=== PATIENT | male | born 1990 | race Caucasian/White ===

== ENCOUNTER 2020-10-09 10:07 | Emergency (ER) | payer OTHER, SELFPAY ==
[2020-10-09 10:16] VITALS: BP 129/85; PULSE 64; RESP 18; TEMP 35.6; O2SAT 99
--- NOTE | 2020-10-09 10:34 | ED.DENTAL ---
HPI - Dental/Oral General Chief complaint: Dental/Oral Stated complaint: Tooth Pain Time Seen by Provider: 10/09/20 10:30 Source: patient and RN notes reviewed Mode of arrival: ambulatory Limitations: no limitations History of Present Illness HPI Narrative: Patient presents today complaining of right upper and lower dental pain x1.5 weeks. Patient has a dental appointment to have many of his teeth extracted November 25 at [facility]. Currently rates his pain 9/10 and has been using Tylenol, ibuprofen, Orajel, ice, and heat without relief. Denies facial swelling, shortness of breath, or difficulty swallowing. He cannot pinpoint his pain to one tooth. MD Complaint: tooth pain Related Data Home Medications Medication Instructions Recorded Confirmed No Home Medications 10/09/20 10/09/20 Allergies Allergy/AdvReac Type Severity Reaction Status Date / Time No Known Allergies Allergy Verified 10/09/20 10:24 Review of Systems Review of Systems: Narrative: CONSTITUTIONAL: Denies body aches, fever, chills, or sweats. EYES: Denies visual changes, redness, or discharge. ENT: Denies rhinorrhea, congestion, sore throat, or otalgia. +Tooth pain CARDIOVASCULAR: Denies chest pain, palpitations, or edema. RESPIRATORY: Denies cough or dyspnea. GASTROINTESTINAL: Denies abdominal pain, nausea, vomiting, or diarrhea. GENITOURINARY: Denies dysuria or hematuria. SKIN: Denies rash, itching, or wounds. MUSCULOSKELETAL: Denies back pain, joint pain, or myalgia. NEUROLOGIC: Denies headache, numbness, tingling, or weakness. PSYCH: Denies depression or anxiety. PMFSH Comments At time of signature, I have reviewed and agree with nursing past medical, surgical, social and family history unless otherwise noted. Please see nursing chart for further information. There is no relevant family history pertinent to the presenting complaint Exam Narrative: Exam Narrative: GENERAL: Well-appearing, well-nourished, and in no acute distress. HEAD: Normocephalic, atraumatic. EYES: EOMI. No redness or drainage. Conjunctivae normal. ENT: Mucous membranes pink and moist. Throat normal. Uvula midline. Gross dental decay throughout. Patient localizes pain to the right upper and lower lateral teeth. These teeth are broken off at the gumline and dark brown in color. Gumline is not exceptionally edematous. No obvious periapical abscesses noted. No facial swelling noted. NECK: Normal AROM. Supple. No lymphadenopathy. CHEST: No respiratory distress. EXTREMITIES: Normal range of motion. No edema. SKIN: Warm, dry, no rash. Capillary refill normal. Normal skin turgor. NEURO: No focal deficits. Alert and oriented x3. Gait steady. PSYCH: Normal affect. No signs of depression or anxiety. Course Vital Signs Vital signs: Vital Signs Temperature 96.1 F L 10/09/20 10:16 Pulse Rate 64 10/09/20 10:16 Respiratory Rate 18 10/09/20 10:16 Blood Pressure 129/85 10/09/20 10:16 Pulse Oximetry 99 10/09/20 10:16 Temperature 96.1 F L 10/09/20 10:16 Pulse Rate 64 10/09/20 10:16 Respiratory Rate 18 10/09/20 10:16 Blood Pressure 129/85 10/09/20 10:16 Pulse Oximetry 99 10/09/20 10:16 Reviewed. Pt has been instructed to follow up with his PCP regarding his elevated blood pressure today. MDM - Dental/Oral Differential Diagnosis Differential diagnosis: Likely gingival abscess, dental caries, toothache, dental abscess and fracture of tooth Critical Care Time Critical Care Time Critical Care Time: No Discharge Plan Discharge Clinical Impression: Toothache Patient Disposition: Home, Self-Care Condition: Stable Instructions: Antibiotic Form, Toothache (ED) Additional Instructions: Please take the amoxicillin as prescribed until gone. Continue [id number]-[id number] medication for pain as well. Follow-up with your dentist as soon as possible for further evaluation and treatment, as further dental care cannot be provided at
== END 2020-10-09 10:40 | disposition home or self-care (01) ==
PROVIDERS: Emergency Provider Nurse Practitioner; PCP Emergency Medicine
DX: K08.89 Other specified disorders of teeth and supporting structures (principal)
CPT/HCPCS: 99213; G0463

== ENCOUNTER 2021-01-10 10:08 | Emergency (ER) | payer OTHER, SELFPAY ==
--- NOTE | 2021-01-10 10:18 | ED.DENTAL ---
HPI - Dental/Oral General Chief complaint: Dental/Oral Stated complaint: Tooth Pain Time Seen by Provider: 01/10/21 10:18 Source: patient Mode of arrival: ambulatory Limitations: no limitations History of Present Illness HPI Narrative: Yazan Gonzalez is a 30-year-old male [facility] of lower right molar. He has extremely poor dentition and needs many teeth pulled; he is an dentist appointment dental clinic to start counselors appointment twice Related Data Allergies Allergy/AdvReac Type Severity Reaction Status Date / Time No Known Allergies Allergy Verified 01/10/21 10:35 Review of Systems Review of Systems: CONSTITUTIONAL: Denies fever, chills, sweats. EYES: Denies visual changes, redness, discharge. ENT: Denies rhinorrhea, congestion, sore throat, otalgia. Poor dentition pain lower right molar CARDIOVASCULAR: Denies chest pain, palpitations, edema. RESPIRATORY: Denies dyspnea, wheezing, cough GASTROINTESTINAL: Denies abdominal pain, nausea, vomiting, diarrhea. GENITOURINARY: Denies dysuria, hematuria, abnormal discharge SKIN: Denies rash or itching. NEUROLOGIC: Denies numbness, or focal weakness. PSYCHIATRIC: Denies anxiety or depression. PMFSH Past Medical History Medical History Poor dentition Family History Family History (Updated 01/10/21 @ 10:29 by Glendy Falcon CNP) Other No acute medical problems Social History Social History (Updated 01/10/21 @ 10:29 by Glendy Falcon CNP) Smoking packs per day: 1 Smoking cigarettes per day: 20.0 Smoking status: Current every day smoker Tobacco type: cigarettes Alcohol intake: current Comments At time of signature, I agree with nursing past medical, surgical, social and family history. There is no relevant family history pertinent to the presenting complaint. Exam Narrative: GENERAL: This is a well-nourished, well-developed patient, in mild distress. HEAD: normocephalic, atraumatic. EYES: . Sclera clear/white. Vision is grossly intact. EARS: External ears normal,. Hearing grossly intact. NOSE: External nose normal without nasal discharge, nares without redness, no rhinorrhea. THROAT: Mucous membranes moist, posterior pharynx erythema; many teeth broken down to the gum some black; swelling to right lower jaw NECK: Neck supple, non-tender CARDIOVASCULAR: Regular rate and rhythm without murmurs, gallops, or rubs. RESPIRATORY: Clear to auscultation. Breath sounds equal bilaterally. No wheezes, rales, or rhonchi. GASTROINTESTINAL: Abdomen soft, SKIN: warm, intact with no suspicious lesions or rash, good texture and turgor. NEURO: awake, alert, and oriented to person, place and time. There were no obvious focal neurologic abnormalities. Steady gait EXTREMITIES: Normal range of motion. BACK: Nontender without deformity Course Course Emergency Course: Patient comes with dental pain for second time in 4 months has been unable to get a dental appointment as they have counseled x2 Started on amoxicillin 875 twice daily x10 days given high-dose ibuprofen for pain, viscous lidocaine Vital Signs Vital signs: Vital Signs Temperature 98.1 F 01/10/21 10:20 Pulse Rate 71 01/10/21 10:20 Respiratory Rate 16 01/10/21 10:20 Blood Pressure 117/87 01/10/21 10:20 Pulse Oximetry 100 01/10/21 10:20 Temperature 98.1 F 01/10/21 10:20 Pulse Rate 71 01/10/21 10:20 Respiratory Rate 16 01/10/21 10:20 Blood Pressure 117/87 01/10/21 10:20 Pulse Oximetry 100 01/10/21 10:20 MDM - Dental/Oral Differential Diagnosis Differential diagnosis: Likely gingival abscess, dental caries, toothache, dental abscess, fracture of tooth and other Critical Care Time Critical Care Time Critical Care Time: No Discharge Plan Discharge Clinical Impression: Dental abscess Patient Disposition: Home, Self-Care Condition: Stable Instruction
[2021-01-10 10:20] VITALS: BP 117/87; PULSE 71; RESP 16; TEMP 36.7; O2SAT 100
== END 2021-01-10 11:00 | disposition home or self-care (01) ==
PROVIDERS: Emergency Provider Nurse Practitioner; PCP Emergency Medicine
DX: K04.7 Periapical abscess without sinus (principal); F17.210 Nicotine dependence, cigarettes, uncomplicated
CPT/HCPCS: 99213; G0463

== ENCOUNTER 2021-08-23 09:40 | Emergency (ER) | payer OTHER, SELFPAY ==
[2021-08-23 09:49] VITALS: BP 126/77; PULSE 97; RESP 18; TEMP 36.2; O2SAT 97
--- NOTE | 2021-08-23 09:54 | ED.LOWEXIN ---
HPI - Extremity Injury (Lower) General Chief Complaint: Unspecified Stated Complaint: Muscle Pain Time Seen by Provider: 08/23/21 09:54 Source: patient Mode of arrival: ambulatory Limitations: no limitations History of Present Illness HPI Narrative: 31-year-old male presented for complaint of right knee and left lateral leg pain after injury 4 days ago. He states he was jumping on a trampoline and hyperextended the right knee, the next day he developed these pains. He has been taking ibuprofen with minimal relief. He states pain is worse with ambulating, rates it a 9 out of 10. Denies swelling, bruising, numbness, tingling, weakness of the extremities. Related Data Allergies Allergy/AdvReac Type Severity Reaction Status Date / Time No Known Allergies Allergy Verified 01/10/21 10:35 Review of Systems Review of Systems: CONSTITUTIONAL: Denies body aches, fever, chills EYES: Denies visual changes ENT: Denies rhinorrhea, congestion CARDIOVASCULAR: Denies chest pain, palpitations, or edema. RESPIRATORY: Denies cough or dyspnea. GASTROINTESTINAL: Denies abdominal pain, nausea, vomiting, or diarrhea. SKIN: Denies rash, itching, or wounds. MUSCULOSKELETAL: Reports right knee pain, left lateral leg pain NEUROLOGIC: Denies headache, numbness, tingling, or weakness. PSYCH: Denies depression or anxiety. All systems reviewed & are unremarkable except as noted in HPI and below PMFSH Past Medical History Medical History Poor dentition Family History Family History Other No acute medical problems Social History Social History Smoking packs per day: 1 Smoking cigarettes per day: 20.0 Smoking status: Current every day smoker Tobacco type: cigarettes Alcohol intake: current Comments At time of signature, I have reviewed and agree with nursing past medical, surgical, social and family history unless otherwise noted. Please see nursing chart for further information. There is no relevant family history pertinent to the presenting complaint Exam Narrative: GENERAL: Well-appearing appears older than stated age HEAD: Normocephalic, atraumatic. EYES: conjunctivae clear NECK: Supple. CHEST: Speaks in full sentences. No respiratory distress. HEART: Regular rate and rhythm. Normal and equal peripheral pulses. EXTREMITIES: Right knee without redness, bruising, or swelling. It is tender to palpation posteriorly. He is ambulatory. Left lateral leg from knee to ankle is tender with palpation, consistent with muscle strain. No lesions, redness, swelling, or bruising. Normal sensation and range of motion to both lower extremities. alignment normal, skin warm, dry, pink. Capillary refill less than 3 seconds. SKIN: Warm, dry, no rash. NEURO: Alert and oriented x3. PSYCH: Normal mood and affect Course Course Emergency Course: Patient is aware of diagnosis, understands and agrees to treatment plan. Anticipatory guidance given. Patient agrees to follow-up as directed and is aware of reasons to seek care at the emergency department. Portions of this record may have been created with voice recognition software Level of Care: Express Care Visit Vital Signs Vital signs: Vital Signs Temperature 97.2 F L 08/23/21 09:49 Pulse Rate 97 08/23/21 09:49 Respiratory Rate 18 08/23/21 09:49 Blood Pressure 126/77 08/23/21 09:49 Pulse Oximetry 97 08/23/21 09:49 Oxygen Delivery Room Air 08/23/21 09:49 Temperature 97.2 F L 08/23/21 09:49 Pulse Rate 97 08/23/21 09:49 Respiratory Rate 18 08/23/21 09:49 Blood Pressure 126/77 08/23/21 09:49 Pulse Oximetry 97 08/23/21 09:49 Oxygen Delivery Room Air 08/23/21 09:49 Reviewed MDM - Extremity Injury (Lower) MDM Narrative Medical decision making narrative: Patient declines
== END 2021-08-23 10:06 | disposition home or self-care (01) ==
PROVIDERS: Emergency Provider Nurse Practitioner Family; PCP Emergency Medicine
DX: M25.561 Pain in right knee (principal); M79.662 Pain in left lower leg
CPT/HCPCS: 99213; G0463

== ENCOUNTER 2023-07-29 15:20 | Emergency (ER) | payer OTHER, SELFPAY ==
[2023-07-29 15:28] VITALS: BP 149/91; PULSE 61; RESP 12; TEMP 37.1; O2SAT 97
--- NOTE | 2023-07-29 15:29 | ED.DENTAL ---
HPI - Dental/Oral General Chief complaint: Dental/Oral Stated complaint: Dental Pain Time Seen by Provider: 07/29/23 15:29 Source: patient Mode of arrival: ambulatory History of Present Illness HPI Narrative: 33 old male presented for complaint of right upper dental pain x2 weeks. Endorses many broken teeth and poor dentition, and says the root is causing problems. Endorses swelling and throbbing pain. Denies drainage, sob, difficulty swallowing, or facial swelling. Cannot find a dentist who takes his insurance. Taking Tylenol or ibuprofen, lidocaine gel and clove oil without improvement. Complaint: tooth pain Related Data Allergies Allergy/AdvReac Type Severity Reaction Status Date / Time No Known Allergies Allergy Verified 07/29/23 15:21 Review of Systems Review of Systems: CONSTITUTIONAL: Denies body aches, fever, chills ENT: Denies rhinorrhea, congestion, sore throat, or otalgia. Reports dental pain CARDIOVASCULAR: Denies chest pain, palpitations RESPIRATORY: Denies cough or dyspnea. SKIN: Denies rash, itching, or wounds. MUSCULOSKELETAL: Denies myalgia. NEUROLOGIC: Denies headache, numbness, tingling, or weakness. [facility] Past Medical History Medical History Poor dentition Family History Family History Other No acute medical problems Social History Social History Smoking packs per day: 1 Smoking cigarettes per day: 20.0 Smoking status: Current every day smoker Tobacco type: cigarettes Alcohol intake: current Comments At time of signature, I have reviewed and agree with nursing past medical, surgical, social and family history unless otherwise noted. Please see nursing chart for further information. There is no relevant family history pertinent to the presenting complaint Exam Narrative: GENERAL: Appears in pain; no acute distress. HEAD: Normocephalic, atraumatic. EYES: EOMI. No redness or drainage. Conjunctivae normal. ENT: Dental pain location of #2; site is broken off at the gumline and dark brown in color.??Gross dental decay throughout. Gumline is not exceptionally edematous.? No obvious periapical abscesses noted.? No facial swelling noted. Mucous membranes pink and moist. no dysphagia, odynophagia, dysphonia, or dyspnea. TMs normal bilaterally. Throat normal. Uvula midline. NECK: Normal AROM. No lymphadenopathy. no induration below mandible, no neck pain. CHEST: No respiratory distress. Clear to auscultation. HEART: Regular rate and rhythm. No murmur appreciated. SKIN: Warm, dry, no rash. Normal skin turgor. NEURO: No focal deficits. Alert and oriented x3. Gait steady. Course Course Emergency Course: Patient is aware of diagnosis, understands and agrees to treatment plan. Anticipatory guidance given. Patient agrees to follow-up as directed and is aware of reasons to seek care at the emergency department. Portions of this record may have been created with voice recognition software Level of Care: Express Care Visit Vital Signs Vital signs: Vital Signs Temperature 98.7 F 07/29/23 15:28 Pulse Rate 61 07/29/23 15:28 Respiratory Rate 12 07/29/23 15:28 Blood Pressure 149/91 H 07/29/23 15:28 Pulse Oximetry 97 07/29/23 15:28 Oxygen Delivery Room Air 07/29/23 15:28 Temperature 98.7 F 07/29/23 15:28 Pulse Rate 61 07/29/23 15:28 Respiratory Rate 12 07/29/23 15:28 Blood Pressure 149/91 H 07/29/23 15:28 Pulse Oximetry 97 07/29/23 15:28 Oxygen Delivery Room Air 07/29/23 15:28 MDM - Dental/Oral MDM Narrative Medical decision making narrative: Patients pain and complaint coupled with physical findings are consistent with dentalgia/ dental abscess. There are no focal signs of space occupying lesions that are compromising to the airway; No uvular deviation or
== END 2023-07-29 15:45 | disposition home or self-care (01) ==
PROVIDERS: Emergency Provider Nurse Practitioner Family
DX: K08.89 Other specified disorders of teeth and supporting structures (principal); F17.210 Nicotine dependence, cigarettes, uncomplicated
CPT/HCPCS: 99213; G0463

== ENCOUNTER 2023-08-28 10:03 | Emergency (ER) | payer OTHER, SELFPAY ==
[2023-08-28 10:13] VITALS: BP 151/92; PULSE 64; RESP 16; TEMP 36.7; O2SAT 100
--- NOTE | 2023-08-28 10:40 | ED.URI ---
HPI - URI/Sore Throat General Chief Complaint: Upper Respiratory Infection Stated Complaint: Sore Throat Time Seen by Provider: 08/28/23 10:50 Source: patient and RN notes reviewed Mode of arrival: ambulatory Limitations: no limitations History of Present Illness HPI Narrative: 33-year-old male presents with concern for over 4 day history of sore throat, nasal congestion, cough. He denies fever, body aches, chills, sweats. He has taken Benadryl. MD elicited complaint: cough and sore throat Related Data Allergies Allergy/AdvReac Type Severity Reaction Status Date / Time No Known Allergies Allergy Verified 08/28/23 10:10 Review of Systems Review of Systems: CONSTITUTIONAL: Denies malaise, chills, sweats, or fever. EYES: Denies visual changes, redness, or discharge. ENT: Reports rhinorrhea, congestion, sore throat. Denies sinus pain, otalgia CARDIOVASCULAR: Denies chest pain, palpitations, or edema. RESPIRATORY: Reports cough. Denies dyspnea. GASTROINTESTINAL: Denies abdominal pain, nausea, vomiting, diarrhea SKIN: Denies rash or itching. MUSCULOSKELETAL: Denies myalgia. NEUROLOGIC: Denies headache. All systems reviewed & are unremarkable except as noted in HPI and below PMFSH Past Medical History Medical History Poor dentition Family History Family History Other No acute medical problems Social History Social History Smoking packs per day: 1 Smoking cigarettes per day: 20.0 Smoking status: Current every day smoker Tobacco type: cigarettes Alcohol intake: current Comments At time of signature, agree with nursing past medical, surgical, social and family history. There is no relevant family history pertinent to the presenting complaint Exam Narrative: GENERAL: Well-appearing, well-nourished, and in no acute distress. HEAD: Normocephalic EYES: PERRLA, conjunctivae clear ENT: Nares clear, turbinates edematous and erythematous, clear discharge. Mucous membranes moist. TM pearly shannon with sharp light reflex bilaterally; no tragal tenderness. Oropharynx not erythematous without lesions. Tonsils not enlarged and without exudate, no drooling, no hoarseness, no trismus, uvula midline. NECK: Supple. No lymphadenopathy CHEST: Clear to auscultation, breath sounds equal. No wheezing, rhonchi, rales, or stridor. No respiratory distress, speaks in full sentences. HEART: Regular rate and rhythm. No murmur heard. SKIN: Warm, dry, no rash. NEURO: Alert and oriented x3. PSYCH: Normal mood and affect Course Course Emergency Course: Patient is aware of diagnosis, understands and agrees to treatment plan. Anticipatory guidance given. Patient agrees to follow-up as directed and is aware of reasons to seek care at the emergency department. Portions of this record may have been created with voice recognition software Level of Care: Express Care Visit Vital Signs Vital signs: Vital Signs Temperature 98.1 F 08/28/23 10:13 Pulse Rate 64 08/28/23 10:13 Respiratory Rate 16 08/28/23 10:13 Blood Pressure 151/92 H 08/28/23 10:13 Pulse Oximetry 100 08/28/23 10:13 Oxygen Delivery Room Air 08/28/23 10:13 Temperature 98.1 F 08/28/23 10:13 Pulse Rate 64 08/28/23 10:13 Respiratory Rate 16 08/28/23 10:13 Blood Pressure 151/92 H 08/28/23 10:13 Pulse Oximetry 100 08/28/23 10:13 Oxygen Delivery Room Air 08/28/23 10:13 Reviewed. MDM - URI/Sore Throat MDM Narrative Medical decision making narrative: Differential diagnosis considered: Bennett virus, strep pharyngitis, allergic rhinitis, upper respiratory tract infection, sinusitis, rhinosinusitis, nasopharyngitis. viral pharyngitis, otitis media, otitis externa, pneumonia, bronchitis, viral cough syndrome, viral syndrome, and influenza. Exam findings show no acute c
== END 2023-08-28 11:00 | disposition home or self-care (01) ==
PROVIDERS: Emergency Provider Nurse Practitioner
DX: J06.9 Acute upper respiratory infection, unspecified (principal); F17.210 Nicotine dependence, cigarettes, uncomplicated
CPT/HCPCS: 87081; 87880; 99213; G0463

== ENCOUNTER 2024-06-08 18:02 | Emergency (ER) | payer OTHER, SELFPAY ==
--- NOTE | ~2024-06-08 | CT_ITS ---
EXAMINATION: CT brain wo con DATE: 06/08/2024 18:28 INDICATION: ams, aphagia . TECHNIQUE: Computed tomography (CT) of the head was performed without intravenous contrast. The mA wa s adjusted according to patient size. Iterative reconstruction technique was employed. The dose-lengt h product was 605.33 mGy-cm. COMPARISON: None. FINDINGS: No acute intracranial hemorrhage or extra-axial fluid collection. No hydrocephalus, mass, or herniation. No acute ischemic infarct. Unremarkable dural venous sinus attenuation. No acute osseous abnormality. Trace right mastoid fluid, mild ethmoid mucosal thickening, the remaining aerated spaces are clear. IMPRESSION: No acute intracranial process. Results reported telephonically to Dr. Grace by Dr. Busch at 6:30 PM on 06/08/2024. Reviewed, dictated and finalized at location K.
--- NOTE | ~2024-06-08 | XR_ITS ---
EXAMINATION: XR chest 1V portable Exam Date/Time: 06/08/2024 18:25 CDT HISTORY: CVA? Comparison: None. RESULT: Lines, tubes, and devices: None. Lungs and pleura: Clear. Cardiomediastinal silhouette: Normal. Other: No acute osseous or upper abdominal finding. IMPRESSION: No acute cardiopulmonary process. Reviewed, dictated and finalized at location K.
--- NOTE | ~2024-06-08 | CT_ITS ---
EXAMINATION: CTA brain carotid DATE: 06/08/2024 18:31 INDICATION: expressive aphasia, sudden onset 1 hr ago TECHNIQUE: Computed tomographic angiography (CTA) of the head and neck was performed with 100 mL Omni paque-350 intravenous contrast. Automated exposure control and iterative reconstruction technique wer e employed. The dose-length product was 987.18 mGy-cm. Maximum intensity projection and volume render ed 3D-reconstructions were created by the technologist on a separate workstation. COMPARISON: CT brain, same date. FINDINGS: CTA HEAD: No large vessel occlusion, aneurysm, high flow vascular malformation, nidus or extravasation. CTA NECK: Aortic arch and proximal great vessels: Normal arch anatomy. Atherosclerotic calcifications at the vi sualized aortic arch and proximal great vessels. Right common carotid, carotid bifurcation, and internal carotid artery: No plaque.There is 0% stenosi s of the proximal right internal carotid artery relative to normal distal artery lumen diameter (NASC ET criteria). Left common carotid, carotid bifurcation, and internal carotid artery: No plaque.There is 0% stenosis of the proximal left internal carotid artery relative to normal distal artery lumen diameter (NASCET criteria). Vertebral arteries: No significant plaque or stenosis. Vertebral arteries co-dominant. Other findings: Mild degenerative disc disease at C5-6. Small right-sided tracheal or esophageal dive rticulum. IMPRESSION: No large vessel intracranial occlusion, high-grade intracranial stenosis, or aneurysm. No carotid or vertebral artery occlusion, dissection, or significant stenosis. Reviewed, dictated and finalized at location K. IMPRESSION: No large vessel intracranial occlusion, high-grade intracranial stenosis, or an eurysm. No carotid or vertebral artery occlusion, dissection, or significant stenosis.
--- OUTSIDE RECORDS SUMMARY | 2024-06-08 18:07 | XMS_ITS | CONTINUITY OF CARE DOCUMENT ---
Author Name morro hooker Address Unknown Organization [facility] Address [address] [place] [address] Phone [phone] Care Team Providers Care Rail Filler Name Role Phone Regino Campoverde MD Unavailable ORAL WINSLOW MD Unavailable [phone] ORAL WINSLOW MD Unavailable [phone] PROBLEMS Condition Status Date Provider Notes Family History of Hypertension: active Mana Campoverde MD Family History of CVA or Stroke: active Arianna Campoverde MD Cardiology examination active Regino Campoverde MD Asthma active Regino Campoverde MD Tobacco abuse active Regino Campoverde MD Congenital anomaly of lung active Regino blanton MD ENCOUNTERS Date Type Provider Location Encounter Diag nosis - In-person encounter Office Visit Regino Campoverde MD [facility] Family History of Hypertension:Family History of CVA or Stroke:Cardiology examinationAsthmaTobacco abuseCongenital anomaly of lung VITAL SIGNS Date Observation Value Provider Body Mass Index (Ratio) 21.08 kg/m2 Mana Campoverde MD blood pressure, diastolic 87 mm[Hg] Cy nthia Osbaldo blood pressure, systolic 139 mm[Hg] Nayla thia Osbaldo blood pressure, resting No Cynt hia Osbaldo blood pressure, cuff size regular Cy rubén Osbaldo pulse rate 102 /min Mayra Zuleima gonzalez oxygen saturation, oximetry 97 % Mayra Osbaldo respiratory rate E&M 16 /min Mayra Osbaldo height E&M 63 [in_i] Mayra Zuleima gonzalez weight E&M 119 [lb_av] Mayra Zuleima gonzalez ALLERGIES No Known Drug Allergies HISTORY OF MEDICATION USE No Known Medication SOCIAL HISTORY Date Observation Value Provider number of grandchildren Regino Campoverde MD U mansoor Campoverde MD social history E&M S moking History: Jo-Ann hyman currently smokes every day. Jo-Ann hyman has been counseled to quit. Regino Campoverde MD smoking/tobacco cess ation, patient education and counseling yes Regino Campoverde MD social history reviewed E&M revi ewed - no changes required Regino Campoverde MD number of years as a smoker 16 a Mayra Roblero smoking history, total pack/day 1/2 PPD Mayra Roblero cigarette use yes Mayra fernandez smoking status Current every day smoker C dayrnseven Osbaldo FAMILY HISTORY Family Member Condition Father Family History of Co ronary Artery Disease: Father Family History of CV A or Stroke: Mother Family History of Hy pertension: INSURANCE PROVIDERS Payer name Policy type / Coverage type [place] [employer] ID [employer] MED[employer] Medicaid [id number] ADVANCE DIRECTIVES Name Date DISCUSSED - NO DECISION MADE TREATMENT PLAN Date Name Performer Cardiology Chun Angela nt :The Patient was reencouraged to stop smoking. Regino Campoverde MD Cardiology New Patient Regino blanton MD Cardiology New Julio César nt :on inhalers Regino Campoverde MD Cardiology Chun Angela nt :Obtain echo and labs to establish baseline. Jo-Ann hyman has a strong fmhx of heart disease Regino Campoverde MD Date Name TSH, free T4, total T3 CBC (H/H, RBC, INDIC ES, WBC, PLT) LIPID PANEL COMPREHENSIVE METABO LIC PANEL, W/EGFR Complete Echo HISTORY OF PROCEDURES Procedure Date Procedure Name Provider Procedure Notes S tatus EKG Regino Campoverde MD completed
--- NOTE | 2024-06-08 18:08 | ECG_ITS ---
Test Date: 2024-06-08 18:34:47 Measurements Intervals [place] Rate: 104 P: 58 OK: 117 QRS: 65 QRSD: 96 T: 54 QT: 339 QTc: 447 Interpretive Statements SINUS TACHYCARDIA WITH SHORT OK INTERVAL RSR' IN V1 OR V2, PROBABLY NORMAL VARIANT NONSPECIFIC ST & T-WAVE ABNORMALITY ABNORMAL RHYTHM ECG No previous ECG available for comparison Electronically Signed On 06-09-2024 11:23:[address] M.D.
[2024-06-08 18:11] LABS: Glucose Point of Care 166 mg/dl (65-105)
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
[2024-06-08 18:21] LABS: Estimated Glomerular Filt Rate > 60
[2024-06-08 18:22] LABS: Basophils Absolute Auto 0.1 K/mm3 (0.0-0.1); Basophils Percent Auto 0.8 % (0.2-1.2); Eosinophils Absolute Auto 0.2 K/mm3 (0-0.3); Eosinophils Percent Auto 1.8 % (0-4.4); Hematocrit 47.2 % (42.0-52.0); Hemoglobin 16.4 g/dL (14.0-18.0); Immature Granulocyte Absolute 0.04 K/mm3 (0.00-0.031); Immature Granulocyte Percent A 0.4 % (0-0.5); Lymphocytes Absolute Auto 3.48 K/mm3 (0.9-3.2); Mean Corpuscular HGB Conc 34.7 g/dl (32-36); Mean Corpuscular Hemoglobin 30.7 pg (26-34); Mean Corpuscular Volume 88.2 fl (80-100); Mean Platelet Volume 9.4 fl (7.4-10.4); Monocytes Absolute Auto 0.7 K/mm3 (0.1-0.6); Monocytes Percent Auto 6.7 % (2.6-8.5); Neutrophils Absolute Auto 6.1 K/mm3 (1.3-6.7); Neutrophils Percent Auto 57.3 % (45.5-73.1); Platelet Count Result 310 k/mm3 (150-375); Red Blood Count 5.35 M/mm3 (4.6-6.20); Red Cell Distribution Width 13.1 % (11.5-14.5); White Blood Count 10.6 K/mm3 (4.5-10.0)
[2024-06-08 18:29] VITALS: BP 132/86; PULSE 110; RESP 20; TEMP 36.4; O2SAT 96
[2024-06-08 18:32] LABS: Ethanol < 10 mg/dL (<10)
[2024-06-08 18:34] LABS: Alanine Aminotransferase 21 U/L (6-50); Albumin Level 4.5 g/dL (3.5-5.1); Alkaline Phosphatase 95 U/L (38-126); Anion Gap 12 mmol/L (4-12); Aspartate Amino Transferase 25 U/L (17-59); Bilirubin,Total 0.6 mg/dL (0.2-1.3); Blood Urea Nitrogen 11 mg/dL (9-20); Calcium 9.2 mg/dL (8.4-10.2); Carbon Dioxide 24 mmol/L (22-30); Chloride 102 mmol/L (98-107); Estimated Glomerular Filt Rate > 60; Glucose 169 mg/dL (65-110); Partial Thromboplastin Time 22.2 Seconds (22.3-36.8); Prothrombin Time 13.9 Seconds (11.1-14.7); Sodium 138 mmol/L (137-145)
[2024-06-08 18:37] VITALS: BP 132/86; PULSE 108; PULSE 109; RESP 18; O2SAT 100
[2024-06-08 18:45] LABS: Troponin I < 0.012 ng/mL (0.000-0.034)
--- OUTSIDE RECORDS SUMMARY | 2024-06-08 18:49 | XMS_ITS | CONTINUITY OF CARE DOCUMENT ---
Author Name morro hooker Address Unknown Organization [facility] Address [address] [place] [address] Phone [phone] Care Team Providers Care Hog Dropper Name Role Phone Regino Campoverde MD Unavailable ORAL WINSLOW MD Unavailable [phone] ORAL WINSLOW MD Unavailable [phone] PROBLEMS Condition Status Date Provider Notes Family [...] In-person encounter Office Visit Regino Campoverde MD [facility] Family History of Hypertension:Family History of [...] years as a smoker 14 a Mayra Robelro smoking history, total pack/day 1/2 PPD Mayra Roblero cigarette use yes Mayra fernandez smoking status Current every day smoker C darynseven Osbaldo FAMILY HISTORY Family Member Condition Father Family History of Co ronary Artery Disease: Father Family History of CV A or Stroke: Mother Family History of Hy pertension: INSURANCE PROVIDERS Payer name Policy type / Coverage type Ray red republican [employer] [employer] Medicaid [id number] ADVANCE DIRECTIVES Name Date DISCUSSED - NO [...]
[2024-06-08] MEDS: ASPIRIN 81 MG CHEWABLE TABLET 324 MG PO (19:23)
--- NOTE | 2024-06-08 19:30 | P.HP_ITS ---
H&P: HPI History of Present Illness Date/Time: 06/08/24 19:30 Chief Complaint: Expressive dysphasia Narrative: 33-year-old male with no medical history presents the hospital with expressive aphasia. Which resolved while he was in the ED. Patient has slightly leukocytosis at 10.6, potassium of 3.0, drug screen positive for cannabinoids, alcohol is negative. Head CT CTA shows no acute process. Chest x-ray shows no acute process. EKG shows sinus tachycardia 104. Neurology consulted with recommendations for aspirin, Lipitor and MRI. Review of Systems Review of Systems: 12 systems were reviewed and are negativ e except for as per HPI. [facility] Past Medical History Medical History Poor dentition Family History Family History Other No acute medical problems Social History Social History Smoking packs per day: 1 Smoking cigarettes per day: 20.0 Smoking status: Current every day smoker Tobacco type: cigarettes Alcohol intake: current Meds Home Medications and Allergies Home Medications ?Medication ?Instructions ?Recorded ?Confirmed ?Type pseudoephedrine HCl 120 mg 120 mg PO Q12H PRN nasal 08/28/23 Rx tablet,extended release (12 Hour congestion #20 tabs Decongestant ER) Allergies Allergy/AdvReac Type Severity Reaction Status Date / Time No Known Allergies Allergy Verified 06/08/24 18:41 Vital Signs Vital Signs - 24 hr 06/08/24 18:29 06/08/24 18:37 06/08/24 18:37 Temperature 97.6 F Pulse Rate 110 H 109 H 108 H Respiratory Rate 20 18 Blood Pressure 132/86 132/86 Pulse Oximetry 96 100 Oxygen Delivery Room Air 06/08/24 18:37 Temperature Pulse Rate Respiratory Rate Blood Pressure Pulse Oximetry 100 Oxygen Delivery Room Air Exam Narrative: General: well appearing, appears stated age. HEENT: normocephalic, atraumatic. Mucous membranes moist. EOMI, PERRLA, bilateral sclera anicteric, no conjunctival injection. Neck supple without JVD, lymphadenopathy, or bruit. Respiratory: clear to ascultation bilaterally. No rales/rhonic/wheezes. Cardiovascular: Regular rate and rhythm, normal S1-S2 upon ascultation. No murmurs, rubs, or clicks. PMI is nondisplaced, capillary refill less than 3 second. Abdomen: Soft, round, no pulsatile masses, nondistended and nontender. No rebound, no guarding. No CVA tenderness, no hepatosplenomegaly. Bowel sounds present to all four quadrants. No high pitch or tinkling sounds, resonant to percussion. Extremities: No cyanosis, clubbing, or edema present. Pulses are palpable 2/2. Active ROM to all four extremities. Neuro: Alert and orientated x 4. PERRLA. Cranial nerves 2-12 intact without focal deficit. Skin: Warm, dry, and intact, without rash, erythema, or lesion. Psych: pleasant, cooperative, normal speech, normal affect, no hallucinations, no dysarthia H&P: Results Labs Labs: Short CBC 06/08/24 Range/Units 18:16 WBC 10.6 H (4.5-10.0) K/mm3 Hgb 16.4 (14.0-18.0) g/dL Hct 47.2 (42.0-52.0) % Plt Count 310 (150-375) k/mm3 BMP 06/08/24 06/08/24 17:19 18:16 Sodium 138 Potassium 3.0 L Chloride 102 Carbon Dioxide 24 BUN 11 Creatinine 1.30 1.18 Glucose 169 H Calcium 9.2 Cardiac Enzymes 06/08/24 Range/Units 18:16 Troponin I < 0.012 (0.000-0.034) ng/mL Liver Function 06/08/24 Range/Units 18:16 Total Bilirubin 0.6 (0.2-1.3) mg/dL AST 25 (17-59) U/L ALT 21 (6-50) U/L Alkaline Phosphatase 95 (38-126) U/L Albumin 4.5 (3.5-5.1) g/dL Assessment and Plan Assessment and plan (1) TIA (transient ischemic attack): Code(s): G45.9 - Transient cerebral ischemic attack, unspecified Status: Acute Assessment and Plan: Neurology consulted MRI pending Aspirin and Plavix given
[2024-06-08 19:48] LABS: Amphetamine Screen Urine Negative (Negative); Barbiturate Screen Urine Negative (Negative); Benzodiazepines Screen Urine Negative (Negative); Cannabinoid Screen Urine Positive (Negative); Cocaine Screen Urine Negative (Negative); Methadone Screen Urine Negative (Negative); Opiate Screen Urine Negative (Negative); Phencyclidine Screen Urine Negative (Negative)
[2024-06-08 20:47] VITALS: BP 114/87; PULSE 86; RESP 14; O2SAT 98
--- NOTE | 2024-06-08 23:15 | P.PNCROSS_ITS ---
Event Note Event Note Event Note: Patient left AMA before MAINTENANCE CRAFTSMAN did H& P. Explain the risk of leaving AMA, he is A&O x4. Paper signed
--- NOTE | 2024-06-08 23:15 | PM.EVENT ---
Event Note Event Note Event Note: Patient left AMA before QUALITY LAB TECHNICIAN did H& P. Explain the risk of leaving AMA, he is A&O x4. Paper signed
== END 2024-06-08 20:49 | disposition left against medical advice (07) ==
LOC: ANHED 20:07 → ANH3MEDSUR 21:30
PROVIDERS: Emergency Medicine; Emergency Provider Student in an Organized Health Care Education/Training Program
DX: G45.9 Transient cerebral ischemic attack, unspecified (principal); R47.01 Aphasia; F17.210 Nicotine dependence, cigarettes, uncomplicated; R00.0 Tachycardia, unspecified; R94.31 Abnormal electrocardiogram [ECG] [EKG]
CPT/HCPCS: 36415; 70450; 70496; 70498; 71045; 80053; 80307; 82077; 82948; 84484; 85025; 85610; 85730; 93005; 99284; A9270; Q9967